=== PATIENT | male | born 1990 | race Two or more races ===

== ENCOUNTER 2022-11-02 17:01 | Emergency (ER) | payer BC, OTHER ==
[2022-11-02 17:07] VITALS: BP 129/75; PULSE 72; RESP 20; TEMP 98; BMI 35.6
[2022-11-02] MEDS ORDERED: FAMOTIDINE 20 MG/50 ML IVPB 20 MG/50 ML MG IVPB ONE ×2 (17:15→17:35)
[2022-11-02] MEDS ORDERED: SODIUM CHLORIDE 1,000 ML IV STA (17:15)
[2022-11-02] MEDS ORDERED: ONDANSETRON 4 MG/2 ML VIAL IVPUSH ONE (17:15)
[2022-11-02] MEDS ORDERED: ACETAMINOPHEN 1000 MG/100 ML BAG IVPB ONE (17:15)
[2022-11-02] MEDS ORDERED: ACETAMINOPHEN INJECTION 100 ML IVPB ONE (17:34)
[2022-11-02] MEDS ORDERED: ONDANSETRON 4 MG/2 ML VIAL ONE (17:35)
[2022-11-02 18:24] LABS: BASO % 0.2 % (0-2.0); EOS % 0.1 % (0-4.5); HEMATOCRIT 43.9 % (35.4-49); LYMPH % 2.4 % (8-40); MCH 29.2 pg (25.7-33.7); MCHC 34.1 g/dl (32.0-35.9); MEAN CELL VOLUME 85.6 fl (80-96); MEAN PLT VOLUME 7.2 fl (7.5-11.1); MONO % 1.8 % (3.8-10.2); NEUT % 95.5 % (42.8-82.8); PLATELET COUNT 271 10^3/uL (134-434); RBC 5.13 M/mm3 (4.00-5.60); RDW 13.5 % (11.9-15.9); WHITE BLOOD COUNT 12.5 K/mm3 (4.0-10.0)
[2022-11-02 18:45] LABS: BLOOD UREA NITROGEN 13.4 mg/dL (7-18); CALCIUM 9.3 mg/dL (8.5-10.1)
[2022-11-02 18:48] LABS: CREATININE 0.9 mg/dL (0.55-1.3)
[2022-11-02 18:50] LABS: BILIRUBIN,TOTAL 0.4 mg/dL (0.2-1); TOT PROT 7.8 g/dl (6.4-8.2)
[2022-11-02 19:03] LABS: ANISOCYTOSIS 2+; MACROCYTOSIS 2+; TEAR DROP CELLS 1+
[2022-11-02 20:23] LABS: PH,URINE 5.5 (5.0-8.0); URINE APPEARANCE CLEAR; URINE BILIRUBIN NEGATIVE (NEGATIVE); URINE COLOR YELLOW; URINE GLUCOSE (UA) TRACE (NEGATIVE); URINE KETONE TRACE (NEGATIVE); URINE LEUK ESTERASE NEGATIVE (NEGATIVE); URINE NITRITE NEGATIVE (NEGATIVE); URINE PROTEIN TRACE (NEGATIVE); URINE UROBILINOGEN 0.2 mg/dL (0.2-1.0)
[2022-11-02] MEDS ORDERED: ONDANSETRON *ODT* 4 MG TABLET SL ONE (20:47)
[2022-11-02] MEDS ORDERED: ONDANSETRON 4 MG TABLET PO ONE (20:53)
== END 2022-11-02 21:26 | disposition home or self-care (01) ==
LOC: JER 17:01
PROC: 3E0333Z Introduction of Anti-inflammatory into Peripheral Vein, Percutaneous Approach (ICD-10-PCS; principal; 2022-11-02)
PROC: 3E033GC Introduction of Other Therapeutic Substance into Peripheral Vein, Percutaneous Approach (ICD-10-PCS; 2022-11-02)
PROC: 3E033GC Introduction of Other Therapeutic Substance into Peripheral Vein, Percutaneous Approach (ICD-10-PCS; 2022-11-02)
PROC: 3E033GC Introduction of Other Therapeutic Substance into Peripheral Vein, Percutaneous Approach (ICD-10-PCS; 2022-11-02)
PROC: 3E0337Z Introduction of Electrolytic and Water Balance Substance into Peripheral Vein, Percutaneous Approach (ICD-10-PCS; 2022-11-02)
DX: R11.2 Nausea with vomiting, unspecified (principal); R19.7 Diarrhea, unspecified
CPT/HCPCS: 36415; 80053; 81003; 83690; 85025; 87086; 96360; 96374; 96375; 96376; 99284-25; Q0162

== ENCOUNTER 2022-11-07 12:53 | Emergency (ER) | payer OTHER ==
[2022-11-07 13:10] VITALS: BP 121/75; PULSE 93; RESP 16; TEMP 98.2; BMI 34.4
[2022-11-07] MEDS ORDERED: KETOROLAC TROMETHAMINE 30 MG/1 ML VIAL IM ONE (15:22)
[2022-11-07] MEDS ORDERED: KETOROLAC TROMETHAMINE 30 MG/1 ML VIAL ONE (15:40)
[2022-11-07] MEDS ORDERED: SULFAMETHOXAZOLE/TRIMETHOPRIM 800MG/160MG D.S. TABLET PO ONE (15:46)
[2022-11-07] MEDS ORDERED: SULFAMETHOXAZOLE/TRIMETHOPRIM 800MG/160MG D.S. TABLET ONE (15:49)
== END 2022-11-07 16:05 | disposition home or self-care (01) ==
LOC: JER 12:53 → JERFT 12:53
PROC: 3E0233Z Introduction of Anti-inflammatory into Muscle, Percutaneous Approach (ICD-10-PCS; principal; 2022-11-07)
DX: L66.2 Folliculitis decalvans (principal); N45.4 Abscess of epididymis or testis
CPT/HCPCS: 82962; 87070; 87077; 87205; 99284-25